=== PATIENT | male | born 1950 | race Caucasian/White ===

== ENCOUNTER 2018-07-10 05:33 | Inpatient (IN) | payer OTHER ==
[2018-07-10] VITALS (8 sets, daily range): BP systolic 103–163; BP diastolic 65–86
[~2018-07-10] VITALS: Ht 180.3 cm; Wt 89.4 kg
--- NOTE | 2018-07-10 05:45 | NUR ---
MS RN NOTE PT ARRIVED TO UNIT IN STABLE CONDITION. A&O X4, ABLE TO MAKE NEEDS KNOWN. ACCOMPANIED BY . NO SIGNS OF SOB OR DISTRESS, NO C/O PAIN. PT. NPO SINCE MIDNIGHT. HERE FOR R KNEE TKA. ALL CURRENT NEEDS ATTENDED TO. SAFETY PRECAUTIONS IN PLACE: BED LOW, LOCKED, UPPER RAILS UP, AND CALL LIGHT WITHIN REACH. WILL CONT TO MONITOR.
[2018-07-10] MEDS ORDERED: BUPIVACAINE 0.5 % PF 150 MG/30 ML VIAL ONE (07:20)
[2018-07-10] MEDS ORDERED: BACITRACIN 50000 UNITS/VIAL ONE (07:20)
[2018-07-10] MEDS ORDERED: TRANEXAMIC ACID 3,000 MG in SODIUM CHLORIDE IRRIG SOLUTION 70 ML IR ONE (07:30)
--- NOTE | 2018-07-10 07:30 | NUR ---
M/S RN OPENING NOTES PATIENT RECEIVED ON BED, A/O X 4 AND ABLE TO MAKE NEEDS KNOWN. NO SOB NOTED. ABD SOFT AND NON DISTENDED WITH ACTIVE BOWEL SOUNDS. COMPLAIN OF PAIN 8/10 ON KNEES DUE TO SCHEDULED SURGERY FOR RIGHT TKA. SKIN WARM TO TOUCH, INTACT AND DRY. IV SITE ON LEFT HAND WITH NO S/SX OF INFILTRATION. ALL CONCERNS ATTENDED, PLACED CALL LIGHT WITHIN REACH TO ENSURE SAFETY. WILL CONTINUE TO EVALUATE CARE.
--- NOTE | 2018-07-10 07:40 | NUR ---
M/S RN PATIENT PICKED UP FOR SURGERY SECONDARY TO RIGHT TKA IN STABLE CONDITION. VITAL SIGNS OF BP 163/86, PA 71, RR 18, T 97.9, O2 AT 98% RA. ENDORSED TO OR NURSE MACARIO PATIENT'S CONDITION.
[2018-07-10] MEDS ORDERED: FENTANYL PF 250MCG/5ML AMPUL ONE (08:49)
[2018-07-10] MEDS ORDERED: FAMOTIDINE/PF INJ 20 MG/2 ML VIAL IV ONE (08:50)
[2018-07-10] MEDS ORDERED: ROCURONIUM BROMIDE 50 MG/5 ML ONE (08:50)
[2018-07-10] MEDS ORDERED: METOCLOPRAMIDE HCL 10 MG/2 ML VIAL ONE (08:50)
[2018-07-10] MEDS ORDERED: MIDAZOLAM HCL 2 MG/2ML VIAL ONE (08:58)
[2018-07-10] MEDS ORDERED: ALBUTEROL HALF STRENGTH 1.25 MG/3 ML VIAL.NEB ONE (10:53)
[2018-07-10] MEDS ORDERED: FENTANYL PF 100MCG/2ML AMPUL ONE (11:23)
[2018-07-10] MEDS ORDERED: diphenhydrAMINE HCL 25 MG CAPSULE PO PRN (11:30)
[2018-07-10] MEDS ORDERED: ONDANSETRON HCL/PF 4 MG/2 ML VIAL IV PRN (11:30)
[2018-07-10] MEDS ORDERED: SCOPOLAMINE HBR 1 EA PATCH.TD72 TD PRN (11:30)
[2018-07-10] MEDS ORDERED: oxyCODONE IR immediate release 5 MG PO PRN (11:30)
--- NOTE | 2018-07-10 11:40 | NUR ---
M/S RN PATIENT CAME BACK FROM OPERATING ROOM S/P RIGHT TKA. PATIENT A/OX4 AND ABLE TO MAKE NEEDS KNOWN. NO SHORTNESS OF BREATH NOTED, PLACED ON OXYGEN AT 2LPM VIA NASAL CANNULA AND TOLERATED WELL. BOTH LEGS ON COMPRESSION AT 40 MM HG, ARPIT WARP AND ICE PACK ON RIGHT KNEE PLACED WITHOUT ANY BLEEDING NOTED. FEET ABLE TO SENSE TOUCH. COMPLAIN OF PAIN AT 6/10 BUT TOLERATED. OBTAINED VITAL SIGNS WITH BP 103/66, AZ 60, RR 16, T 97.7, O2 AT 94% AT 3LPM. REMAINED ON BEDSIDE. WILL CONTINUE TO EVALUATE CARE.
[2018-07-10] MEDS: HYDROMORPHONE 1 MG/1 ML DISP.SYRIN SQ PRN (12:59)
[2018-07-10] MEDS: IV D5/0.45 NACL 1,000 ML IV PRN (13:22)
[2018-07-10] MEDS ORDERED: ONDANSETRON HCL/PF 4 MG/2 ML VIAL IVP PRN (13:30)
[2018-07-10] MEDS ORDERED: BISACODYL SUPP (10 MG) 10 MG/SUPP.RECT SUPP.RECT RC PRN (13:30)
[2018-07-10] MEDS ORDERED: SENNOSIDES 8.6 MG TABLET PO PRN (13:30)
[2018-07-10] MEDS ORDERED: DOCUSATE SODIUM 250 MG CAPSULE PO PRN (13:30)
[2018-07-10] MEDS ORDERED: ACETAMINOPHEN 325 MG TABLET PO PRN (13:30)
[2018-07-10] MEDS ORDERED: ZOLPIDEM TARTRATE 5 MG TABLET PO PRN (13:30)
[2018-07-10] MEDS ORDERED: AMLO2.5T4 PO (13:32)
[2018-07-10] MEDS ORDERED: LEVO50TA8 PO (13:32)
[2018-07-10] MEDS ORDERED: DICY10CA37 PO (13:43)
[2018-07-10] MEDS ORDERED: LEVO112T7 PO (13:43)
[2018-07-10] MEDS: oxyCODONE IR immediate release 5 MG PO PRN (14:15)
[2018-07-10] MEDS ORDERED: DICYCLOMINE HCL 10 MG CAPSULE PO PRN (17:00)
[2018-07-10] MEDS: ANCEF 1 GM/50 ML D5W IV SCH ×2 (17:59)
[2018-07-10] MEDS ORDERED: TAMSULOSIN 0.4 MG CAP.SR.24H PO STA (18:48)
--- NOTE | 2018-07-10 19:15 | NUR ---
M/S RN CLOSING NOTES PATIENT A/O X 4 AND ABLE TO MAKE NEEDS KNOWN. RESPIRATION EVEN AND NON LABORED WITH NO ACUTE RESPIRATORY DISTRESS, ON OXYGEN AT 3LPM VIA NASAL CANNULA AND TOLERATED WELL. ABDOMEN SOFT AND NON DISTENDED WITH ACTIVE BOWEL SOUNDS, UNABLE TO URINATE FROM S/P RIGHT TKA SURGERY. BERNARD CATHETER AND FLOMAX ORDERED BY MD, RISK AND BENEFITS OF TREATMENT PLAN EXPLAINED TO PATIENT WITH VERBAL UNDERSTANDING, ENDORSED TO NEXT SHIFT TO INSERT STRAIGHT CATHETER DUE TO REFUSAL AT THIS TIME. COMPLAIN OF PAIN AT SURGERY SITE - RIGHT KNEE WITH SCALE OF 6-8/10 WITH PAIN MEDICATION GIVEN PRESCRIBED. SKIN REMAINED INTACT AND DRY WITH NO OPEN SKIN BREAKDOWN. IV SITE ON LEFT HAND GAUGE 22 WITH NO S/SX OF INFILTRATION RUNNING A D5 1/2 NS AT 125 ML/HR. ALL CONCERNS ATTENDED, PLACED CALL LIGHT WITHIN REACH TO ENSURE SAFETY. ENDORSED PATIENT CONDITION TO NEXT SHIFT.
--- NOTE | 2018-07-10 19:30 | NUR ---
MS/RN NOTES RECEIVED PT. LYING IN BED. PT. IS AWAKE, ALERT AND ORIENTED X4. BREATHING EVEN AND UNLABORED ON 2LPM O2 VIA NC. NO SOB, RESPIRATORY DISTRESS OR COMPLAINTS OF PAIN NOTED AT THIS TIME. PT. WITH RIGHT KNEE POST OP DRESSING PRESENT, CLEAN, DRY AND INTACT. NO BLEEDING OR DRAINAGE NOTED. PER DAYSHIFT NURSE PT. HAS NOT VOIDED POST OP. PT. IS REFUSING BERNARD CATHETER AT THIS TIME STATING HE WANTS TO TRY AND GIVE IT SOME MORE TIME FOR HIM TO URINATE ON HIS OWN. WILL CONTINUE TO ASSESS PT. WITH BLADDER SCAN, MONITOR URINE OUTPUT AND EDUCATE PT. ON IMPORTANCE OF USING STRAIGHT CATH IF NOT VOIDING AND PT. IS RETAINING MORE THAN 400ML OF URINE IN BLADDER. BED LOCKED AND IN LOWEST POSITION, SIDE RAILS UP X2, CALL LIGHT WITHIN REACH, WILL CONTINUE TO MONITOR.
[2018-07-10] MEDS ORDERED: MENTHOL/CETYLPYRD (CEPACOL) 1 LOZ LOZENGE PO ONE (21:12)
[2018-07-10] MEDS ORDERED: MENTHOL/CETYLPYRD (CEPACOL) 1 LOZ LOZENGE PO PRN (21:30)
[2018-07-10] MEDS ORDERED: BETHANECHOL CHLORIDE (25 MG) 25 MG TABLET PO SCH (21:30)
--- NOTE | 2018-07-10 21:38 | NUR ---
MS/RN NOTES CALLED DR. BYERS TO CLARIFY URECHOLINE MEDICATION DOSAGES ORDERED. DR. BYERS DID NOT ANSWER, LEFT VOICEMAIL. AWAITING CALL BACK. WILL CONTINUE TO MONITOR.
--- NOTE | 2018-07-10 21:43 | NUR ---
MS/RN NOTES RECEIVED CALL FROM DR. BYERS. CLARIFIED URECHOLINE MEDICATION ORDERS. PER DR. BYERS URECHOLINE 25MG PO NOW AND THEN URECHOLINE 25MG EVERY 8 HOURS X 2 DOSES. WILL CALL AND NOTIFY PHARMACY. WILL CARRY OUT ORDERS. WILL CONTINUE TO MONITOR.
[2018-07-10] MEDS ORDERED: BETHANECHOL CHLORIDE (25 MG) 25 MG TABLET PO ONE (22:00)
[2018-07-11] MEDS: IV D5/0.45 NACL 1,000 ML IV PRN ×2 (01:21→17:10)
[2018-07-11] MEDS: oxyCODONE IR immediate release 5 MG PO PRN ×2 (01:21→06:24)
[2018-07-11] MEDS: ANCEF 1 GM/50 ML D5W IV SCH ×2 (01:21)
[2018-07-11] MEDS: BETHANECHOL CHLORIDE (25 MG) 25 MG TABLET PO SCH ×2 (06:15→12:10)
[2018-07-11 06:30] LABS: HEMOGLOBIN 13.2 g/dL (13.5-17.5)
--- NOTE | 2018-07-11 06:37 | NUR ---
MS/RN NOTES PT. IS LYING IN BED, AWAKE, ALERT AND ORIENTED X4. BREATHING EVEN AND UNLABORED ON 2LPM O2 VIA NC. NO SOB, RESPIRATORY DISTRESS OR COMPLAINTS OF PAIN NOTED AT THIS TIME. PT. WITH RIGHT KNEE POST OP DRESSING PRESENT, CLEAN, DRY AND INTACT. NO BLEEDING OR DRAINAGE NOTED. ALL PT. NEEDS MET. BED LOCKED AND IN LOWEST POSITION, SIDE RAILS UP X2, CALL LIGHT WITHIN REACH, WILL ENDORSE TO DAYSHIFT NURSE FOR CONTINUITY OF CARE.
[2018-07-11] MEDS: LEVOTHYROXINE SODIUM 112 MCG TABLET PO SCH (07:53)
[2018-07-11 08:00] VITALS: BP 145/78
--- NOTE | 2018-07-11 08:14 | NUR ---
M/S RN OPENING NOTES PATIENT A/O X 4 AND ABLE TO MAKE NEEDS KNOWN. RESPIRATION EVEN AND UNLABORED WITH NO ACUTE RESPIRATORY DISTRESS. ABDOMEN SOFT AND NON DISTENDED WITH ACTIVE BOWEL SOUNDS. SKIN WARM TO TOUCH WITH RIGHT KNEE COVERED WITH ARPIT WRAP. PAIN SCALE OF 8/10 DUE TO POST OP SURGERY SITE WITH OXYCODONE GIVEN BY HUMAN RESOURCES CONSULTANT AND TOLERATED WELL. IV LINE ON LEFT HAND, PATENT WITH NO S/SX OF INFILTRATION, RUNNING NS AT 125 ML/HR. ALL CONCERNS ADDRESSED. PLACED CALL LIGHT WITHIN REACH TO ENSURE SAFETY. WILL CONTINUE TO EVALUATE CARE.
[2018-07-11] MEDS: DOCUSATE SODIUM 100 MG CAPSULE PO SCH ×2 (09:10→16:18)
[2018-07-11] MEDS: AMLODIPINE BESYLATE 2.5 MG TABLET PO SCH (09:10)
[2018-07-11] MEDS: ASPIRIN 325 MG TABLET PO SCH ×2 (09:10→16:18)
[2018-07-11] MEDS: HYDROMORPHONE 1 MG/1 ML DISP.SYRIN SQ PRN (09:24)
[2018-07-11 16:00] VITALS: BP 146/81
--- NOTE | 2018-07-11 18:14 | NUR ---
M/S RN CLOSING NOTES PATIENT A/O X 4 AND ABLE TO MAKE NEEDS KNOWN. ON BED WITH HOB ELEVATED AND COMFORTABLE. RESPIRATION EVEN AND NON LABORED WITH NO ACUTE RESPIRATORY DISTRESS, OXYGEN NEEDED ON BEDSIDE, PATIENT NOT NEEDED AT THIS TIME. SKIN WARM TO TOUCH AND DRY, RIGHT KNEE WITH ARPIT WRAP BANDAGE DUE TO S/P RIGHT TKA, TO CHANGE BY MD ORDERED. ABDOMEN SOFT AND NON DISTENDED WITH ACTIVE BOWEL SOUNDS. DENIES PAIN AND DISCOMFORT DURING THE SHIFT. IV LINE PATENT WITH FLUSHING ON LEFT HAND WITH GAUGE 22 RUNNING D5 1/2 NS AT 125 ML/HR. ALL CONCERNS ADDRESSED. WILL ENDORSED PATIENT CONDITION TO NEXT SHIFT.
--- NOTE | 2018-07-11 19:35 | NUR ---
MS/RN NOTES RECEIVED PT. LYING IN BED. PT. IS AWAKE, ALERT AND ORIENTED X4. BREATHING EVEN AND UNLABORED ON 2LPM O2 VIA NC. NO SOB, RESPIRATORY DISTRESS OR COMPLAINTS OF PAIN NOTED AT THIS TIME. PT. WITH LEFT HAND 22 GAUGE IV SALINE LOCK PRESENT, PATENT AND INTACT. PT. WITH RIGHT KNEE POST OP DRESSING PRESENT, CLEAN, DRY AND INTACT. NO BLEEDING OR DRAINAGE NOTED. BED LOCKED AND IN LOWEST POSITION, SIDE RAILS UP X2, CALL LIGHT WITHIN REACH, WILL CONTINUE TO MONITOR.
[2018-07-11 20:00] VITALS: BP 123/73
--- NOTE | 2018-07-12 07:00 | NUR ---
MS/RN NOTES PT. IS LYING IN BED. PT. IS AWAKE, ALERT AND ORIENTED X4. BREATHING EVEN AND UNLABORED ON 2LPM O2 VIA NC. NO SOB, RESPIRATORY DISTRESS OR COMPLAINTS OF PAIN NOTED AT THIS TIME. PT. WITH LEFT HAND 22 GAUGE IV SALINE LOCK PRESENT, PATENT AND INTACT. PT. WITH RIGHT KNEE POST OP DRESSING PRESENT, CLEAN, DRY AND INTACT. NO BLEEDING OR DRAINAGE NOTED. ALL PT. NEEDS MET. BED LOCKED AND IN LOWEST POSITION, SIDE RAILS UP X2, CALL LIGHT WITHIN REACH, WILL ENDORSE TO DAYSAZFT NURSE FOR CONTINUITY OF CARE.
--- NOTE | 2018-07-12 07:35 | NUR ---
MS RN OPENING NOTES RECEIVED PT LAYING IN BED WITH HOB SLIGHTLY ELEVATED. PT IS A/O X4, AFEBRILE. RESPIRATIONS ARE EVEN AND UNLABORED, NOT IN ANY ACUTE DISTRESS NOTED. PT DENIES ANY PAIN AT THIS TIME, NO C/O SOB, N/V. IV SITE LEFT HAND INTACT, NO INFILTRATION NOTED. DRESSING KEPT CLEAN AND DRY. SAFETY MEASURES ARE IN PLACE. WILL MONITOR THROUGHOUT SHIFT FOR CONTINUITY OF CARE.
[2018-07-12] MEDS: LEVOTHYROXINE SODIUM 112 MCG TABLET PO SCH (07:54)
[2018-07-12 08:00] VITALS: BP 124/70
[2018-07-12] MEDS: DOCUSATE SODIUM 100 MG CAPSULE PO SCH ×2 (09:07→17:16)
[2018-07-12] MEDS: ASPIRIN 325 MG TABLET PO SCH ×2 (09:07→17:16)
[2018-07-12] MEDS: AMLODIPINE BESYLATE 2.5 MG TABLET PO SCH (09:08)
[2018-07-12] MEDS: oxyCODONE IR immediate release 5 MG PO PRN ×2 (10:09→23:27)
--- NOTE | 2018-07-12 11:15 | NUR ---
MS RN NOTES-- PT SEEN AND EXAMINED BY DR. ROME.
[2018-07-12] MEDS ORDERED: ACET325T53 PO (12:01)
[2018-07-12] MEDS ORDERED: OXYC5CAP18 PO (12:01)
[2018-07-12] MEDS ORDERED: RIVA10TA PO (12:01)
[2018-07-12] MEDS ORDERED: DOCU-270 PO (12:01)
[2018-07-12] MEDS ORDERED: BISA10SU8 RC (12:01)
[2018-07-12] MEDS ORDERED: MAGNESIUM HYDROXIDE 30 ML UDC PO PRN (13:30)
[2018-07-12 16:00] VITALS: BP 131/67
--- NOTE | 2018-07-12 18:35 | NUR ---
MS RN CLOSING NOTES ALL DUE MEDS GIVEN, NEEDS MET AND RENDERED. PT IS A/O X4, AFEBRILE. RESPIRATIONS ARE EVEN AND UNLABORED, NOT IN ANY ACUTE DISTRESS NOTED. PT DENIES ANY PAIN AT THIS TIME, NO C/O SOB, N/V. IV SITE L HAND INTACT, NO INFILTRATION NOTED. DRESSING KEPT CLEAN AND DRY.REMINDED PT TO USE CALL LIGHT, CALL LIGHT LEFT WITHIN REACH. SAFETY MEASURES ARE IN PLACE. WILL ENDORSE TO NEXT SHIFT FOR CONTINUITY OF CARE.
--- NOTE | 2018-07-12 19:00 | NUR ---
MS RN OPENING NOTES Received patient A/O X 4, on semi-Marino's position on bed. With R knee wrapped with dressing, clean, dry and intact. Patient noted able to ambulate to bathroom with walker with full weight bearing on the R knee, no pain on ambulation per patient. With patent peripheral IV line L hand G#22, SL. Patient noted tolerated oral fluid intake well. Kept on bed clean, dry and comfortable. Encouraged to use IS while awake. On RA, no SOB/respiratory distress noted. Kept bed low and locked, siderails up X2, call light within easy reach. Will continue to monitor accordingly.
[2018-07-12 20:00] VITALS: BP 122/67
--- NOTE | 2018-07-13 06:41 | NUR ---
MS RN CLOSING NOTES Patient noted comfortably asleep at this time, on RA, no SOB/respiratory distress noted. No discomfort noted. Medicated for pain once, noted effective. Able to ambulate to bathroom with walker, no assistance needed. Kept on bed clean, dry and comfortable. Call light within easy reach. For D/C to [facility] - awaiting for authorization. Endorsed to the next shift.
--- NOTE | 2018-07-13 07:20 | NUR ---
MS RN OPENING NOTE RECEIVED PT IN BED, ALERT AND ORITNED X4. DENIES CHEST PAIN, SOB, N/V. BREATHING IS EVEN AND UNLABORED ON ROOM AIR. LEFT HAND #[id number] IS SALINE LOCKED WITHOUT REDNESS OR SWELLING. NEUROVASCULAR STATUS INTACT. SURGICAL DRESSING COVERED WITH ARPIT BANDAGE AND IS CLEAN, DRY AND INTACT. ASSISTED PT TO BATHROOM WITH WALKER AND BACK TO BED. ALL NEEDS ATTENDED TO. BED IS LOCKED AND IN LOWEST POSITION, SIDE RAILS UP X2, BED ALARM ON, CALL LIGHT AND POSSESSIONS WITHIN REACH.
[2018-07-13 08:00] VITALS: BP 149/86
[2018-07-13] MEDS: ASPIRIN 325 MG TABLET PO SCH ×2 (08:12→16:56)
[2018-07-13] MEDS: LEVOTHYROXINE SODIUM 112 MCG TABLET PO SCH (08:12)
[2018-07-13] MEDS: DOCUSATE SODIUM 100 MG CAPSULE PO SCH ×2 (08:12→16:56)
[2018-07-13] MEDS: AMLODIPINE BESYLATE 2.5 MG TABLET PO SCH (08:12)
--- NOTE | 2018-07-13 12:00 | NUR ---
MS RN NOTE PER LINSEY FIGUEROA HE WILL CHANGE DRESSING TODAY
--- NOTE | 2018-07-13 14:48 | NUR ---
MS RN NOTE LINSEY FIGUEROA AT THE BEDSIDE FOR PT ASSESSMENT AND DRESSING CHANGE.
[2018-07-13 16:00] VITALS: BP 142/69
[2018-07-13] MEDS: oxyCODONE IR immediate release 5 MG PO PRN (16:59)
--- NOTE | 2018-07-13 18:05 | NUR ---
MS RN CLOSING NOTE PT IN BED, ALERT AND ORIENTED X4. DENIES CHEST PAIN, SOB, N/V. BREATHING IS EVEN AND UNLABORED ON ROOM AIR. LEFT HAND #[id number] IS SALINE LOCKED WITHOUT REDNESS OR SWELLING. NEUROVASCULAR STATUS AT BASELINE. SURGICAL DRESSING CHANGED BY PA TODAY AND IS CLEAN, DRY AND INTACT. PT PENDING INSURANCE AUTHORIZATION FOR [facility] PROVIDED AND PT ASSISTED TO TURN AND REPOSITION Q2H FOR THE DURATION OF THE SHIFT. ALL NEEDS ATTENDED TO. BED IS LOCKED AND IN LOWEST POSITION, SIDE RAILS UP X2, BED ALARM ON, CALL LIGHT AND POSSESSIONS WITHIN REACH.
--- NOTE | 2018-07-13 19:30 | NUR ---
RECEIVED PT IN BED SLEEPING AROUSES EASILY. BREATHING EVENLY. NO SOB. NO S/S OF PAIN OR DISCOMFORT. CALL LIGHT WITHIN REACH. WILL CONT TO MONITOR
[2018-07-13 20:00] VITALS: BP 125/70
[2018-07-13 20:18] VITALS: BP 125/70
--- NOTE | 2018-07-14 00:15 | NUR ---
PT AWAKE. WAS PROVIDED WITH WARM BLANKET PER HIS REQUEST . DENIED ANY PAIN OR DISCOMFORT. DRESSING ON R KNEE REMAINED C/D/I WITH ARPIT BANDAGE.. WILL CONT TO MONITOR ,
--- NOTE | 2018-07-14 02:55 | NUR ---
PT IN BED SLEEPING W/ NAD.
[2018-07-14] MEDS: oxyCODONE IR immediate release 5 MG PO PRN (05:06)
--- NOTE | 2018-07-14 05:11 | NUR ---
OXY IR 10MG GIVEN ORDERED FOR C/O R KNEE PAIN. WILL CONT TO MONITOR
--- NOTE | 2018-07-14 06:26 | NUR ---
PT IN BED SLEEPING AROUSES EASILY. BREATHING EVENLY. NO SOB. NAD. PAIN CONTROLLED WELL WITH THE PAIN MEDICATIONS. DRESSING REMAINED C/D/I. ASSISTED PT WITH AMBULATING TO THE BATHROOM. ALL NEEDS MET. BED LOW LOCKED.CALL LIGHT WITHIN REACH, WILL CONT TO MONITOR AND WILL ENDORSE TO AM SHIFT FOR SONIDO.
--- NOTE | 2018-07-14 07:30 | NUR ---
m/s water resource specialist: initial assessment received pt in bed awake, a/ox4. s/p right tka. dressing intact, clean, and dry. for d'c to [facility], awaiting for bed. case management making arrangement. no c/o pain at this time. instructed to call for assistance. will monitor.
[2018-07-14 08:12] VITALS: BP 126/71
[2018-07-14] MEDS: ASPIRIN 325 MG TABLET PO SCH (08:12)
[2018-07-14] MEDS: DOCUSATE SODIUM 100 MG CAPSULE PO SCH (08:12)
[2018-07-14] MEDS: LEVOTHYROXINE SODIUM 112 MCG TABLET PO SCH (08:12)
[2018-07-14] MEDS: AMLODIPINE BESYLATE 2.5 MG TABLET PO SCH (08:12)
[2018-07-14] MEDS ORDERED: MAGNESIUM CITRATE 296 ML BOTTLE PO PRN (11:00)
--- NOTE | 2018-07-14 11:20 | NUR ---
m/s benito: randy Britt () notified, spoke to her over the phone and informed her that pt is leaving here at 1500 to go to [facility]. pt aware and informed him that no bed available at [facility] per case management, pt agreed to go to [facility]. Addendum: 07/14/18 at 1155 by SIRISHA SPEARS LVN pt to go to [facility].
--- NOTE | 2018-07-14 11:30 | NUR ---
m/s retail sales consultant: randy garrido (case management) at bedside for updates on d'c to [facility] this afternoon.
[2018-07-14] MEDS: MAGNESIUM CITRATE 296 ML BOTTLE PO STA ×2 (11:41→12:38)
--- NOTE | 2018-07-14 11:45 | NUR ---
m/s process safety manager: notes dr. brown here and informed md that pt is going to [facility] ([facility]) and dr. caceres for f/u as stated. pt made aware. report given to chiki (rn) at [facility] for continuity of care.
[2018-07-14] MEDS ORDERED: DICYCLOMINE HCL 10 MG CAPSULE PO SCH (12:00)
--- NOTE | 2018-07-14 12:00 | NUR ---
M/S ELECTRIC HOIST OPERATOR: NOTES DISCHARGE INSTRUCTIONS GIVEN TO PT INCLUDING MEDICATIONS TEACHING AND PT VERBALIZED UNDERSTANDING. ETA OF AMBULANCE AT 1500, PT AWARE.
--- NOTE | 2018-07-14 13:20 | NUR ---
m/s heater worker: notes DRESSING CHANGE TO RIGHT KNEE, NOTED CHLOE INTACT WITH REDNESS AND BLISTER ON RIGHT ANTERIOR SIDE KNEE (2.0CMX1.3CM) AREA WITH REDNESS TO POSTERIOR KNEE AREA. PHOTOS TAKEN AND PROTECTED WITH MEPILEX. DEFER TO .
--- NOTE | 2018-07-14 15:00 | NUR ---
m/s electric meter setter: notes ambulance called and running late as stated. pt made aware. h/l removed with tip intact. instructed to call for assistance. will monitor.
--- NOTE | 2018-07-14 15:55 | NUR ---
M/S MANAGER DEPARTMENT: NOTES AMBULANCE HERE AND REPORT GIVEN TO ONE OF THE CREW.
--- NOTE | 2018-07-14 16:28 | NUR ---
m/s fitting room maintenance mechanic: discharged discharge to [facility] via ambulance in stable condition with all valuables and d'c papers.
== END 2018-07-14 16:30 | DRG 470 ==
LOC: DS 05:33 → MED 05:35
PROVIDERS: ADMIT Specialist; ATTEND Nurse Practitioner Acute Care
PROC: 0SRC0J9 Replacement of Right Knee Joint with Synthetic Substitute, Cemented, Open Approach (ICD-10-PCS; principal; 2018-07-10)
DX: M17.11 Unilateral primary osteoarthritis, right knee (principal); I10 Essential (primary) hypertension; E03.9 Hypothyroidism, unspecified; K58.9 Irritable bowel syndrome, unspecified; Z87.891 Personal history of nicotine dependence
CPT/HCPCS: 36415; 85027-TC; 87081-TC; 88305-TC; 88311-TC; 97110-TC; 97116-TC; 97530-TC; 97535-TC; A4217; A6402; C1713; G0378; J0690; J1170; J2250; J2405; J2704; J2710; J2765; J3010; J3490; J7030; J7060; L1830